=== PATIENT | female | born 1980 | race Caucasian/White ===

== ENCOUNTER → 2022-10-23 09:30 | Outpatient (CLI) | payer BC, SELFPAY ==
--- NOTE | ~2022-10-23 | MR_ITS ---
MRI of the brain Clinical History: Headache Technique: Axial and sagittal T1-weighted images were acquired. These were followed by axial T2-weigh tawanna, diffusion weighted, gradient, and FLAIR images. Following intravenous administration of 15 cc Mu ltiHance gadolinium, T1-weighted fat-sat imaging was performed in the axial and coronal planes. Findings: No abnormal signal seen in the brain parenchyma. No acute infarct, intracranial hemorrhage, or mass lesion. Ventricles and subarachnoid spaces are unremarkable. Orbits are unremarkable. Paranasal sinuses and m astoid air cells are clear. Major intracranial flow voids appear intact. Sagittal midline structures are intact. No abnormal postcontrast enhancement seen. IMPRESSION: Unremarkable exam. Reviewed, dictated and finalized at location M. IMPRESSION: Unremarkable exam.
== END ==
PROVIDERS: PCP Physician Assistant; Visit Provider Physician Assistant
DX: G44.52 New daily persistent headache (NDPH) (principal)
CPT/HCPCS: 70553; A9577

== ENCOUNTER 2024-07-23 08:36 | Outpatient (CLI) | payer BC, SELFPAY | END 2024-07-23 08:37 | disposition home or self-care (01) | PROVIDERS: PCP Internal Medicine; Visit Provider Internal Medicine | DX: K21.9 Gastro-esophageal reflux disease without esophagitis (principal); Z87.19 Personal history of other diseases of the digestive system | CPT/HCPCS: 74246 ==

== ENCOUNTER 2024-10-07 02:38 | Day surgery (SDC) | payer BC, SELFPAY ==
[2024-06-24 09:36] VITALS: BMI 27.6
--- OUTSIDE RECORDS SUMMARY | 2024-07-09 02:19 | XMS_ITS | Clinical Summary ---
Author Organization [facility] Address [address] [place] [address] Care Team Providers Care Test Case Developer Name Role Phone Daniel Sanchez MD Unavailable Prakash Velasquez MD Primary Care Provider Allergies No known active allergies Medications ascorbic acid (VITAMIN C) 1,000 mg tablet Take 1 tablet (1,000 mg total) by mouth daily Active acetaminophen-as pirin-caffeine (EXCEDRIN MIGRAINE) 250-250-65 mg per tablet Take 1 tablet by mouth every 4 (four) hours as needed Active esomeprazole DR (NexIUM) 20 mg capsule Take 1 capsule (20 mg total) by mouth daily before breakfast Active UNABLE TO FIND Med Name: Mary mccormick Active seyfdocf-ldpy-dg n-folic acid 18-0.4 mg tablet Take by mouth Active ashwagandha root extract 300 mg capsule Take by mouth Active Qulipta 60 mg tabletIndication s:Migraine Prevention Take 1 tablet by mouth daily 30 tablet 3 4 Active Additional Information Patient not taking.Reported on 04/08/2024 triamcinolone (KENALOG) 0.1 % ointment Apply topically 2 (two) times a day as needed for irritation or rash 60 g 5 4 Active Additional Information Patient not taking.Reported on 04/08/2024 methylPREDNISolo ne (Medrol, Connor,) 4 mg DosepackIndicati ons:Acute recurrent pansinusitis follow package directions 1 packet 4 Active Additional Information Patient not taking.Reported on 04/08/2024 busPIRone (BUSPAR) 10 mg tabletIndication s:Generalized Anxiety Disorder Take 1 tablet (10 mg total) by mouth daily 90 tablet 3 4 Active Active Problems Problem Noted Date Diagnosed Date GERD (gastroesophageal reflux disease) 4 Encounter for medical examination to establish c are 08/25/2023 Assessment & Plan (08/25/2023 1:29 PM CDT): A(n) initial well visit to establish care has been performed today. Nancy Alvarado is not up to date on screening tests. She is in need of hepatitis c screening and Cholesterol screening. She is not up to date on needed preventative vaccinations; She is in need of Tdap/Td and Covid-19 (booster). We discussed healthy lifestyle habits, educational material has been given. Medications reviewed, changes documented as per the medical record and discussed with patient along with risks vs benefits. Return in 1 year Decreased testosterone level 10/23/2022 Chronic headache disorder 10/17/2022 Migraines 10/17/2022 Fatigue 10/01/2022 Multiple joint pain 10/01/2022 New daily persistent headache 10/01/2022 Anxiety 10/26/2021 Bilateral impacted cerumen 10/26/2021 Gastroesophageal reflux disease 10/26/2021 Otalgia of both ears 10/26/2021 Encounters Date Type Department Care Team Description 04/08/2024 11:15 AM TAPE RULES PRINTING MACHINE OPERATOR Office Visit [facility] [address] [facility] [address] [place] [address] Adeola Persaud NP Well female exam with routine gynecological exam (Primary Dx); Anxiety from Last 3 Months Surgical History Surgery Date Site/Laterality Comments SHOULDER ARTHROSCOPY W/ LABRAL REPAIR 05/26/2013 - 05/25 CERVICAL DISC SURGERY 05/26/2014 - 05/25/2015 CERVICAL BIOPSY W/ LOOP ELEC TRODE EXCISION Medical History Medical History Date Comments Migraines GERD (gastroesophageal reflux disease) Family History Medical History Relation Name Comments KWABENA disease Brother 1 Asthma Brother 2 No Known Problems Father Dementia Maternal Grandmother Asthma Mother Cervical cancer Mother Brain tumors Mother's Brother Cancer Paternal Grandmother Heart failure Paternal Grandmother Menstrual problems Sister Relation Name Status Comments Brother 1 Alive Brother 2 Alive Father Alive Maternal Grandmother Mother Alive Mother's Brother Paternal Grandmother Sister Alive Social History Tobacco Use Types Packs/Day Years Used Date Smoking Tobacco: Never Passive Smoke Exposure: Never Smokeless Tobacco: Never Tobacco Cessation:Counseling Given: Not Answered Alcohol Use Standard Drinks/Week Comments Not Currently 0 (1 standard drink = 0.6 oz pur e alcohol) AUDIT-C Answer Date Recorded Q1: How often do you have a drink containing alc ohol? Never 04/08/2024 Q2: How many drinks containi ng alcohol do you have on a typical day when you are drinking? 1 or 2 04/08/2024 Q3: How often do you have si x or more drinks on one occasion? Less than monthly 04/08/2024 PHQ-2 Answer Date Recorded PHQ-2 Total Score (If total score is 3 or more points, staff should administer the PHQ-9) 0 08/25/2023 [place] Depression Scale Answer Date Recorded [place] Depression Scale Total 5 01/29/2020 The thought of harming myself has occurred to me . 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 Sex Female 5:22 PM TAPE RULES PRINTING MACHINE OPERATOR Gender Identity Not on file Sexual Orientation Not on file Obstetrics History Para Term AB IAB SAB Ectopic Multiple Livin g Live Births 3 3 3 0 1 1 Date Outcome GA Total Labor Labor/2nd/3rd Weight Sex Type Anes PTL Luh A1 A5 Name Clin 2007 Term M Vag-S pont Epidur al Delivery [facility] 2016 Term F Epidur al Delivery Location:[facility] 2019 Term 39w 1d 0h 19m 0h 13m/0h 06m 2.975 kg (6 lb 8.9 oz) M Vag-S pont Epidur al N Livin g [address],JENNIFER KALEB I Erwin tt, Rasheed Magdaleno MD Delivery [facility]) Last Filed Vital Signs Vital Sign Reading Time Taken Comments Blood Pressure 110/70 04/08/2024 11:41 AM TAPE RULES PRINTING MACHINE OPERATOR Pulse 81 11/23/2023 11:50 AM CDT Temperature 36.8 C (98.2 F) 11/23/2023 11:50 AM CDT Respiratory Rate 18 08/25/2023 12:59 PM CDT Oxygen Saturation 100% 11/23/2023 11:50 AM CDT Inhaled Oxygen Concentration - - Weight 78 kg (172 lb) 04/08/2024 11:41 AM TAPE RULES PRINTING MACHINE OPERATOR Height 165.1 cm (5' 5 ) 04/08/2024 11:41 AM TAPE RULES PRINTING MACHINE OPERATOR Body Mass Index 28.62 04/08/2024 11:41 AM TAPE RULES PRINTING MACHINE OPERATOR Plan of Treatment Health Maintenance Due Date Last Done Comments Hepatitis C Screening 1982 DTaP/Tdap/Td Vaccine (1 - Tdap) 1993 Varicella Vaccines (1 of 2 - 13+ 2-dose series) 1995 Hepatitis B Screening 02/29/2000 Cervical Cancer Screening 09/21/2021 09/21/2020 Covid-19 Vaccine (3 - 2023-2 5 season) 2024 08/02/2020, 07/05/2020 Influenza Vaccine (#1) 2024 Depression Screening 08/24/2024 08/25/2023, 01/29/2020 Breast Cancer Screening-Mammogram 03/17/2025 03/17/2024, 12/11/2022 Regular Well Visit/Exam 18-64 04/08/2025, 08/25/2023 HPV Vaccines Aged Out No longer eligi ble based on patient's age to complete this topic Pneumococcal vaccine <65 Aged Out No longer eligible based on patient's age to complete this topic Procedures Procedure Name Priority Date/Time Associated Diagnosis Comments IGP, APT HPV,RFX 16/18,45 Routine 04/08/2024 12:54 PM TAPE RULES PRINTING MACHINE OPERATOR Well female exam with routine gynecological exam SCREENING MAMMOGRAM BILATERAL W GAVINO Schedule Routine, Read Routine (OP Routine) 03/17/2024 9:05 AM CDT Screening mammogram, encounter for from Last 3 Months or Most Recently Relevant to Health Maintenance Results * IGP, Apt HPV,rfx 16/18,45 (04/08/2024 12:54 PM TAPE RULES PRINTING MACHINE OPERATOR) Clinical indication Comment [facility] - 01 Comment:NEGATIVE FOR INTRAEP ITHELIAL LESION OR MALIGNANCY. Specimen adequacy: Comment [facility] - 01 Comment: Satisfactory for evaluation. Endocervical and/or squamous metaplastic cells (endocervical component) are present. Clinician provided ICD10 Comment [facility] 02 Comment:Z01.419 Performed by Comment [facility] - 01 Comment:Makenna Hobbs, Cyt[employer] hnologist (ASCP) . . [facility] - 01 Note: Comment [facility] 02 Comment: The Pap smear is a screening test designed to aid in the detection of premalignant and malignant conditions of the uterine cervix. It is not a diagnostic procedure and should not be used as the sole means of detecting cervical cancer. Both false-positive and false-negative reports do occur. Test methodology Comment [facility] 02 Comment: This liquid based ThinPrep(R) pap test was screened with the use of an image guided system. HPV Aptima Negative Negative [facility] 03 Comment: This nucleic acid amplification test detects fourteen high-risk HPV types (16,18,31,33,35,39,45,51,52,56,58,59,66,68) without differentiation. Thin Prep-Cervical/ Endocervical 04/08/2024 12:54 PM TAPE RULES PRINTING MACHINE OPERATOR 04/08/2024 Narrative [facility] - 04/16/2024 2:36 PM TAPE RULES PRINTING MACHINE OPERATOR Performed at: - [facility] [id number] [place] [id number] Market Asset Protection Manager: Davonte Seay MD, Phone: [phone] Performed at: - Lab[address] [id number] Market Asset Protection Manager: Citlali Powell MD, Phone: [phone] Performed at: - [address] [id number] Market Asset Protection Manager: Citlali Powell MD, Phone: [phone] Specimen Comment: No. of containers..01 ThinPrep Vial Adeola Persaud NP LAB PATHOLOGY ORDERABLES Fi nal Result [facility] - 01 [facility] 02 [facility] 03 * Screening Mammogram Bilateral W Gavino (03/17/2024 9:05 AM CDT) Anatomical Region Laterality Modality Breast Bilateral Mammography Narrative 03/17/2024 12:15 PM CDT Examination: Screening Mammogram Bilateral W Gavino: 03/17/24 Clinical: Screening mammogram, encounter for. Prior Study Comparisons: Comparison was made to the prior available relevant studies at the time of interpretation. Findings: Screening Mammogram Bilateral W Gavino Bilateral No significant masses, malignant type calcifications, skin thickening, nipple retraction, or significant lymphadenopathy is noted in either breast. Computer Aided Detection was utilized for the interpretation of this study. There are scattered areas of fibroglandular density. The patient will be notified of results by letter. Impression: BI-RADS ATLAS category (overall): 1 - Negative Overall Assessment: 1 - Negative Recommendation: - Routine Screening Mammogram in 1 Yr for both breasts. us Self Screening Mammogram IMG MAMMO PROCEDURES Fi nal Result from Last 3 Months or Most Recently Relevant to Health Maintenance [place] For more information, please contact: [phone] * Full Code (Latest Code Status on File) Date Activated Date Inactivated Comments 01/28/2020 1:16 AM 01/29/2020 11:04 PM Full CPR in c ase of cardiopulmonary arrest Care Teams Test Case Developer Relationship Specialty Start Date End Date Prakash Velasquez MD [address] [facility] [address] [place] [address] PCP - General Family Medicine 08/25/23 Daniel aSnchez MD [address] [facility] [address] [place] [address] Consulting Physician Obstetrics and Gynecology 01/29/20
--- OUTSIDE RECORDS SUMMARY | 2024-07-09 02:19 | XMS_ITS | Referral Summary ---
Author Organization [facility] Address [address] [facility] [facility] [place] [address] Care Team Providers Care Cocoa Press Operator Name Role Phone J Carlos Dawkins MD Primary Care Provider [phone] Source Comments [facility],non-owned Affiliates and Associated Physician Practices is amultiple site organization consisting of ambulatory clinics and hospital sitesin [place], [place], [place] and [place]. This disclosure is being madepursuant to the Care Everywhere program and may not contain all information available regarding this patient. Last updated 18.[facility] [employer] Allergies No known active allergies Medications * Be aware that medications may not be up to date on this document. Alwaysverify current medications with the patient. Medication Sig Dispensed Refills Start Date End Date Status RaNITidine HCl (ZANTAC 75 PO) Active etonogestrel (NEXPLANON) 68 MG implant 68 mg by Subdermal route as directed Active Social History Tobacco Use Types Packs/Day Years Used Date Smoking Tobacco: Never Smokeless Tobacco: Never Sex and Gender Information Value Date Recorded Sex Assigned at Not on file Gender Identity Not on file Sexual Orientation Not on file Last Filed Vital Signs Vital Sign Reading Time Taken Comments Blood Pressure 118/66 08/04/2017 4:03 PM CDT Pulse 78 08/04/2017 4:03 PM CDT Temperature 37.2 C (98.9 F) 08/04/2017 4:03 PM CDT Respiratory Rate 16 08/04/2017 4:03 PM CDT Oxygen Saturation 97% 08/04/2017 4:03 PM CDT Inhaled Oxygen Concentration - - Weight 72.6 kg (160 lb) 08/04/2017 4:03 PM CDT Height 162.6 cm (5' 4 ) 08/04/2017 4:03 PM CDT Body Mass Index 27.46 08/04/2017 4:03 PM CDT Plan of Treatment Not on file Care Teams Cocoa Press Operator Relationship Specialty Start Date End Date J Carlos Dawkins MD PCP - General Family Medicine 02/19/17
--- OUTSIDE RECORDS SUMMARY | 2024-07-09 02:19 | XMS_ITS | Clinical Summary ---
Author Organization [facility] Address [address] [place] [address] Care Team Providers Care Trackless Trolley Driver Name Role Phone J Carlos Dawkins MD Primary Care Provider Source Comments [facility],non-owned Affiliates and Associated Physician Practices is amultiple site organization consisting of ambulatory clinics and hospital sitesin [place], [place], [place] and [place]. This disclosure is being madepursuant to the Care Everywhere program and may not contain all information available regarding this patient. Last updated 18.[facility] Allergies No known active allergies Medications * [...] 08/04/2017 4:03 PM CDT Plan of Treatment Health Maintenance Due Date Last Done Comments LIPID TESTING 1982 MAMMOGRAM 1982 PAP SMEAR 1982 HIV SCREENING 1997 HEPATITIS C SCREENING 02/24/2000 DTAP/TDAP/TD VACCINES (1 - Tdap) 2001 HEPATITIS B VACCINE (1 of 3 - 19+ 3-dose series) 2001 COVID-19 VACCINE (1 - 2023-2 5 season) 2024 INFLUENZA VACCINE (#1) 2024 DEPRESSION SCREENING 05/26/2024 ZOSTER VACCINE (1 of 2) 02/29/2032 HIB VACCINE Aged Out No longer eligi ble based on patient's age to complete this topic HPV VACCINE Aged Out No longer eligi ble based on patient's age to complete this topic MENINGOCOCCAL (Group B) VACCINE Aged Out No longer eligible based on patient's age to complete this topic MENINGOCOCCAL VACCINE Aged Out No kaya ciera eligible based on patient's age to complete this topic PNEUMOCOCCAL VACCINE Aged Out No long er eligible based on patient's age to complete this topic Care Teams Trackless Trolley Driver Relationship Specialty Start Date End Date J Carlos Dawkins MD PCP - General Family Medicine 02/19/17
--- OUTSIDE RECORDS SUMMARY | 2024-07-09 02:19 | XMS_ITS | Data Portability ---
Author Organization [facility], Main Office Address [address] [place] [address] Assessment No assessment recorded. Plan of Treatment Reminders Order Date Submit Date Provider Last Modified By Organization Details Last Modified Time Details Appointments None recorded. Lab lipid panel, serum 2022 [address] [place] [address] [facility], [address], [place], [address], 3 14:30:26 rf (rheumatoid factor), serum 2022 [address] [place] [address] [facility], [address], [place], [address], 3 14:30:25 HbA1c (hemoglobin A1c), blood 2022 [address] [place] [address] [facility], [address], [place], [address], 3 14:30:26 CBC w/ auto diff 2022 023 [email or web address] [facility], [address], [place], [address], 3 15:52:56 CMP, serum or plasma 2022 023 [email or web address] [facility], [address], [place], [address], 3 16:19:00 vitamin B12, serum 2022 023 [email or web address] [facility], [address], [place], [address], 3 15:53:11 iron + TIBC + ferritin, serum 2022 023 [email or web address] [facility], [address], [place], [address], 3 15:53:33 TSH + free T4, serum 2022 023 [email or web address] [facility], [address], [place], [address], 3 16:20:16 thyroid peroxidase (tpo) Ab, serum 2022 023 katie Fuller [facility], [address], [place], [address], 3 14:30:24 vitamin D, 25-hydroxy, total, serum 2022 023 katie Fuller [facility], [address], [place], [address], 3 14:30:25 thyroglobul in Ab, serum 2022 023 katie Fuller [facility], [address], [place], [address], 3 14:30:25 ANASTACIA (antinuclea r antibodies) screen, serum 2022 023 katie Fuller [facility], [address], [place], [address], 3 14:30:25 urinalysis complete, reflex culture 2022 023 katie Fuller [facility], [address], [place], [address], 3 14:30:26 testosteron e, free + total, serum 2022 023 [email or web address] [facility], [address], [place], [address], 3 14:30:26 Referral None recorded. Procedures None recorded. Surgeries None recorded. Imaging MRI, brain, w/wo contrast - Approved [id number] 10/01/2022- 11/29/20222022 023 [facility], [address], [place], [address], 15:57:37 Medication Orders None recorded. Patient TargetsNo targets recorded. Patient InstructionsNo instructions recorded. Reason for Referral None Reported. Results Created Date Observation Date Name Description Value Unit Range Abnormal Flag Note LastModifiedBy Organization Detail LastModifiedTime 10/24/1910/23/2022 MRI, brain , w/wo contr ast No observ ation record ed. [email or web address] [facility] [address], [place], [address], 02/11/2023 18:00:38 Result Notes None recorded. Problems Name Problem SNOMED Code Status Onset Date Resolution Date Notes Provider Name and Address Organization Details Recorded Time Impacted cerumen of bilateral ears 7951211466177 108 Active 2021 Not Available [facility] 3 20:55:02 Bilateral earache 529999455 Active 2021 Not Available [facility] 3 20:55:02 Gastroesop hageal reflux disease 484719776 Active 2021 Not Available [facility] 3 20:55:02 Anxiety 79143494 Active 2021 Not Available [facility] 3 20:55:02 Fatigue 88321543 Active 2022 RENEE Brown [facility] [address], [place], [address] , [facility] 3 12:27:56 New daily persistent headache 0514689506777 05 Active 2022 RENEE Brown [address], [place], [address] , [facility] 3 12:28:01 Multiple joint pain 97166505 Active 2022 RENEE Brown [address], [place], [address] , [facility] 3 12:29:15 Chronic headache disorder 307719831 Active 2022 RENEE Brown [address], [place], [address] , [facility] 3 11:44:16 Migraine 67916312 Active 2022 RENEE Brown [address], [place], [address] , [facility] 3 11:45:57 Testostero ne level below reference range 618469420 Active 2022 RENEE Brown [address], [place], [address] , [facility] 3 09:55:20 Problem Notes None recorded. Procedures Surgical History Date Name Laterality Status Provider Name and Address Organization Details Recorded Time Neck Surgeries completed Not Available [facility] 07/24/2022 20:54:25 Imaging Results Imaging Date Name Status LastModified by Organiz ation Details LastModified Time 10/23/2022 [facility], [facility], w[facility]wo [facility] [place] [address] Imaging [address], [place], [address], 02/11/2023 18:00:38 Procedure Notes None recorded. Medical Equipment None Reported. Allergies No known drug allergies Medications Name Sig Start Date Stop Date Status Note LastModified by Organization Details LastModified Time azithromycin 250 mg tablet TAKE 2 TABLETS (500 MG) BY ORAL ROUTE ONCE DAILY FOR 1 DAY THEN 1 TABLET (250 MG) BY ORAL ROUTE ONCE DAILY FOR 4 DAYS active Not Available Not Available No t Available prednisone 20 mg tablet TAKE 2 TABLETS BY MOUTH EVERY DAY FOR 5 DAYS 12/17 completed Not Available Not Available Not Available butalbital-a cetaminophen -caffeine 50 mg-325 mg-40 mg tablet 09/24 completed Not Available Not Available Not Available amoxicillin 875 mg tablet TK 1 T PO Q 12 H active Not Available Not Available No t Available amoxicillin 875 mg-potassium clavulanate 125 mg tablet TAKE 1 TABLET BY MOUTH EVERY 12 HOURS FOR 10 DAYS 10/26 completed Not Available Not Available Not Available escitalopram 10 mg tablet TAKE 1 TABLET BY MOUTH EVERY DAY 10/26 completed Not Available Not Available Not Available bupropion HCl XL 150 mg 24 hr tablet, extended release TK 1 T PO Q 24 H 10/26 completed Not Available Not Available Not Available Nexium daily 2018 active Not Available Not Available Not Avai lable drospirenone 3 mg-ethinyl estradiol 0.02 mg tablet TAKE 1 TABLET BY MOUTH EVERY DAY 10/26 completed Not Available Not Available Not Available Qulipta 60 mg tablet Take 1 tablet every day by oral route. 2022 active Not Available Not Available Not Avai lable Vitals Date Recorded Body mass index (BMI) Body mass index (BMI) Body height Body height Oxygen saturation Oxygen saturation in Arterial blood by Pulse oximetry Heart rate Respiratory rate Body temperature Body temperature Body weight Body weight Systolic blood pressure Diastolic blood pressure Provider Name and Address Organization Details Last Updated DateTime 3 29.9 kg/m2 30.3 kg/m2 162.56 cm 162.56 cm 98 % 98 % 95 /min 16 /min 98 [degF] 97.5 [degF] 46737.0 7 g 30516.6 9 g 108 mm[Hg] 70 mm[Hg] Not Available [facility] 3 20:54:52 Date Recorded Body height Body temperature Body mass index (BMI) Body weight Respiratory rate Oxygen saturation Oxygen saturation in Arterial blood by Pulse oximetry Heart rate Systolic blood pressure Diastolic blood pressure Provider Name and Address Organization Details Last Updated DateTime 3 162.56 cm 98 [degF] 28.2 kg/m2 05848.1 5 g 16 /min 98 % 98 % 74 /min 110 mm[Hg] 70 mm[Hg] TANYA Guthrie [place] - [facility] [place] [employer] [facility] 3 11:57:56 Date Recorded Body height Body mass index (BMI) Body weight Respiratory rate Oxygen saturation Oxygen saturation in Arterial blood by Pulse oximetry Heart rate Systolic blood pressure Diastolic blood pressure Provider Name and Address Organization Details Last Updated DateTime 3 162.56 cm 28.5 kg/m2 29409.3 3 g 16 /min 99 % 99 % 72 /min 120 mm[Hg] 72 mm[Hg] TANYA Guthrie - [employer] [place] [employer] [facility] 3 09:34:14 Social History Question Answer Notes LastModified by Organizat ion Details LastModified Time Tobacco Smoking Status Never Smoker Not Available [facility] 07/24/2022 20:54:20 Do You Have An Advance Directive? Yes [id number] Information not available 07/24/2022 What Is Your Level Of Alcohol Consumption? None Stopped Drinking 2022 Information not available 10/01/2022 What Is Your Level Of Caffeine Consumption? Moderate [id number].[id number] Information not available 07/24/2022 In The 14 Days Before Symptom Onset, Have You Had Close Contact With A Laboratory-confir med COVID-19 While That Case Was Ill? No [id number] Information not available 07/24/2022 In The 14 Days Before Symptom Onset, Have You Had Close Contact With A Person Who Is Under Investigation For COVID-19 While That Person Was Ill? No MIGRATION.77290 25459 Information not available 07/24/2022 Have There Been Any Changes To Your Family Or Social Situation? No Information no t available 09/30/2022 Are There Any Guns Present In Your Home? Yes [id number].44578 [id number] Information not available 07/24/2022 Do You Use Insect Repellent Routinely? No [email or web address] Information not available 09/30/2022 Have You Ever Been Counseled For Unhealthy Alcohol Use? No MIGRATION.58565 93935 Information not available 07/24/2022 What Is Your Relationship Status? MIGRATION.04783 94720 Information not available 07/24/2022 Do You Use Your Seat Belt Or Car Seat Routinely? Yes MIGRATION.09867 [id number] Information not available 07/24/2022 Do You Have Smoke And Carbon Monoxide Detectors In Your Home? Yes MIGRATION.72892 47156 Information not available 07/24/2022 Do You Feel Stressed (tense, Restless, Nervous, Or Anxious, Or Unable To Sleep At Night)? [id number] MIGRATION.48625 27912 Information not available 07/24/2022 Do You Use Any Illicit Or Recreational Drugs? No MIGRATION.87589 30642 Information not available 07/24/2022 Do You Use Sunscreen Routinely? Yes MIGRATION.49786 91856 Information not available 07/24/2022 Have You Recently Traveled Abroad? No MIGRATION.66923 26085 Information not available 07/24/2022 Do You Have Any Dietary Restrictions? No [email or web address] Information not available 09/30/2022 Do You Or Have You Ever Used Any Other Forms Of Tobacco Or Nicotine? No MIGRATION.87839 11777 Information not available 07/24/2022 Sex: Unknown Functional Status Question Answer Note LastModified by [employer] ion Details LastModified Time What is your exercise level? Moderate [id number] Information not available 07/24/2022 Mental Status None recorded. Family History Relationship Description Onset Age of this Age Resolved Age Notes LastModified by Organization Details LastModified Time Father No current problems or disability [id number] Not available 07/24/2022 20:54:27 Mother No current problems or disability [id number] Not available 07/24/2022 20:54:27 Brother Diabetes mellitus [email or web address] Not available 10/01 11:56:27 Medical History Condition Response MRSA N LUNG DISEASE/DISORDER N HISTORY OF DRUG ABUSE N COPD N RADIATION / CHEMOTHERAPY N BLOOD DISEASES N EAR OR HEARING PROBLEMS N SHINGLES N DEPRESSION (INCLUDING POST ) N STROKE/TIA N ULCERS N OBESITY N ANEURYSM N USE OF BLOOD THINNERS N PARATHYROID DISEASE N CHF N AIDS/HIV N FRACTURES N HYPERTENSION N TOURETTE'S N BLOOD TRANSFUSION N ANEMIA/BLOOD DISORDER N CHRONIC EAR INFECTIONS N TUBERCULOSIS N SLEEP APNEA N ALLERGIES/HAYFEVER N INSOMNIA N HIGH CHOLESTEROL / HYPERLIPIDEMIA N HYPERTHYROIDISM N HYPOTHYROIDISM N HAVE YOU BEEN HOSPITALIZED OR SEEN IN [facility] ER IN THE PAST YEAR ? N HISTORY WITH COMPLICATIONS WITH ANESTHES IA ? N NO SIGNIFICANT PAST MEDICAL HISTORY N DIABETES, TYPE N ENT N SEASONAL ALLERGIES N HEARTBURN / REFLUX N HEPATITIS / LIVER DISEASE N SLEEP DISORDER N HEADACHES/MIGRAINES N SEIZURES/EPILEPSY N PACEMAKER N DIZZINESS N HEART DISEASE/HEART PROBLEMS N CANCER: SPECIFY N ANESTHESIA COMPLICATIONS N AUTOIMMUNE DISEASE N Gynecological HistoryNo gynecological history recorded. Obstetrics History GPAL:G 2 P 0 0 0 2 Type Value Living 2 Total 2 Past Encounters Encounter ID Performer Location Encounter Start Date Encounter Closed Date Diagnosis/Indication Diagnosis SNOMED-CT Code Diagnosis ICD10 Code Diagnosis Note [id number] [facility] [place] [address] [place] [address] 10/26/2021 00:00:00 11/22/2021 20:13:08 [id number] [facility] ENT [place] [address] [place] [address] 02/07/2022 00:00:00 02/07/2022 12:02:27 [id number] RENEE Brown [facility] [place] [address] [place] [address] 10/01/2022 11:48:39 10/01/2022 12:37:03 Fatigue 16047144 R53.83 extensive fatigue panel requested for in depth evaluation of persistent fatigue despite diet healthy and exercise. New daily persistent headache 5734047450 88883 G44.52 qulipta 60mg daily samples Multiple joint pain 3567 8005 M25.50 refer for RF screening Cholesterol screening 27 8956778 Z13.220 fasting lipids due Diabetes m ellitus screening 932866587 Z13.1 screening for diabetes due [id number] RENEE Brown [facility] [place] [address] [place] [address] 10/23/2022 09:31:02 10/23/2022 10:42:47 Fatigue 04991792 R53.83 persistent . ? related to her low testostero ne. iron saturation is just below range but ferritin and iron are normal. she can start OTC iron to trial for now to see if fatigue improves. Testostero ne level below reference range 802066769 R89.1 testostero ne level of 9 on labs and free of 0.6. quite low and likely contributi ng to her chronic fatigue she experience s. Asked pt to reach out to her gynecologi st to inquire on starting testostero ne cream supplement ation. New daily persistent headache 8729775680 50524 G44.52 qulipta 60mg daily is working well. MRI is planned today of brain Health Concerns Section Related Observation LastModified by Organization Detai ls LastModified Time None Recorded Concern Status LastModified by Organization Details LastModified Time None Recorded Advance Directives Directive Y: Payers Encounter Date Sequence Insurance Name Policy Number Policy Dodd Covered Member ID Dodd Member ID Guarantor Name 10/01/2022 1 [facility]: [place] [id number] Imer Newton [id number] Nancy Newton 10/23/2022 1 [facility]: ([place] [id number] Imer Newton [id number] Nancy Newton Notes Date Note Type Note Provider Name and Address Organization Details Recorded Time 2 text/htm l Ear Pain Brief HPIReported bypatient.Location:[facility] Quality:no itching; no discharge from the ears; no burning Severity:no fever; able to perform daily activities; no interference with sleep Context:no recent URI; no recent trauma; no recent swimming; no immunocompromise; no dental problems; no recent airplane travel; no scuba diving; non-smoker;recent ear infection(currently thinks she has one) Alleviating factors:OTC ear drops: ; nasal steroid spray; irrigations of ear; advil sinus is being taken. Associated Symptoms:hearing loss(L ear);sense of fullness/pressure;decreased hearing;muffled hearingReflux/GERDReported bypatient.Symptomsheartburn Severity:moderate Context:related to any meal Alleviating Factors:medication Aggravating Factors:lying down Associated Symptoms:heartburn Not Available [facility] 11/22/2021 20:13:08 3 text/htm l FatigueReported bypatient.Quality:worse in the middle of day-11-4 Severity:normal sleep patterns; normal activity; improving;change in exercise habits(working out more lately) Duration:constant; symptoms lasting over 2 weeks Timing:better; actual date: (3 weeks) Context:symptoms improve on weekends/vacation;problems/ stress at work or home Modifying Factors:taking vitamins;new stressors in life Associated Symptoms:no drug/alcohol withdrawal; no depression; no sleep disturbances; no snoring; periods of not breathing (apnea) have not been observed; no recent change in weight;anxiety; extremely thirstyHeadacheReported bypatient.Location:band around head Quality:similar to previous headaches;aching;throbbing; pain Severity:moderate Duration:7-10 days/month Onset/Timing:worse Context:not related to trauma Aggravating factors:loud noise; visual stimuli or light Alleviating factors:nothing gives relief Associated Symptoms:no nausea; no vomiting; no fever; no constipation; no diarrhea; no confusion; no slurred speech; no dizziness; no weight loss; fatigue RENEE Brown [address] [address], [place], [address], [place] 10/23/2022 21:22:03 3 text/htm l FatigueReported bypatient.Quality:worse in the middle of -- Severity:normal sleep patterns; normal activity; improving;change in exercise habits(working out more lately) Duration:constant; symptoms lasting over 2 weeks Timing:better; actual date: (3 weeks) Context:symptoms improve on weekends/vacation;problems/ stress at work or home Modifying Factors:taking vitamins;new stressors in life Associated Symptoms:no drug/alcohol withdrawal; no depression; no sleep disturbances; no snoring; periods of not breathing (apnea) have not been observed; no recent change in weight;anxiety; extremely thirstyGeneric HPI TemplateReported bypatient.Notes:Pt is here to f/u on her labs. They are in her chart. MRI is scheduled at 10am today.HeadacheReported bypatient.Notes:qulipta is working well, only 2 headaches since last visit. still waiting on pharmacy to see if coverage is there. we have not received prior auth info. RENEE Brown [address] [facility] [address], [place], [address], [place] 10/23/2022 10:04:36 OBGyn Episode No OBEpisode recorded.
--- OUTSIDE RECORDS SUMMARY | 2024-07-09 02:19 | XMS_ITS | Encounter Summary ---
Author Organization [facility] Address [address] [place] [address] Care Team Providers Care Mathematical Engineering Technician Name Role Phone No, Physician Primary Care Provider [phone] Daniel Sanchez MD Unavailable Frieda Hunt Primary Care Pr ovider Prakash Velasquez MD Primary Care Provider Encounter Details Date Type Department Care Team (Late st Contact Info) Description 02/25/2020 Documentation [facility] [address] [place] [address] Suze Johnson, RN Social History Tobacco Use Types Packs/Day Years Used Date Smoking Tobacco: Never Smokeless Tobacco: Never Alcohol Use Standard Drinks/Week Comments Not Currently 0 (1 standard drink = 0.6 oz pur e alcohol) Norfolk Depression Scale Answer Date Recorded [place] Depression Scale Total 5 01/29/2020 The thought of harming myself has occurred to me . 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 Sex Female 5:22 PM ANALYSIS ENGINEER Gender Identity Not on file Sexual Orientation Not on file documented as of this encounter Miscellaneous Notes * Note - Suze Johnson, JORY - 02/25/2020 1:17 PM CDT Telephone Consult - 02/25/20 - 8241 - returned call to voice mail. documented in this encounter Plan of Treatment Not on file documented as of this encounter Visit Diagnoses Not on filedocumented in this encounter Additional Health Concerns Infection Onset Date Last Indicated Resolved Time COVID: Suspected 05/27/2023 05/27/2023 05/27/2023 4:04 PM ANALYSIS ENGINEER RSV, droplet 05/27/2023 05/27/2023 06/03/2023 3:05 AM ANALYSIS ENGINEER documented as of this encounter Care Teams Mathematical Engineering Technician Relationship Specialty Start Date End Date No, Physician PCP - General 10/28/16 12/10/22 Frieda Hunt PA [address] [facility] [address] [place] [address] PCP - General Physician Wind [employer] Electrical Systems Designer 12/11/22 08/24/23 Prakash Velasquez MD [address] [facility] [address] [place] [address] PCP - General Family Medicine 08/25/23 Daniel Sanchez MD [address] [facility] [address] [place] [address] Consulting Physician Obstetrics and Gynecology 01/29/20 documented as of this encounter
--- OUTSIDE RECORDS SUMMARY | 2024-07-09 02:19 | XMS_ITS | Referral Summary ---
Author Organization [facility] Address [address] [place] [address] Care Team Providers Care Skilled Trades Teacher Name Role Phone Daniel Sanchez MD Unavailable Prakash Velasquez MD Primary Care Provider Encounters Date Type Department Care Team Description 04/08/2024 11:15 AM OUTSOLE ROUNDER Office Visit [facility] [address] [facility] [address] [place] [address] Adeola Persaud NP Well female exam with routine gynecological exam (Primary Dx); Anxiety from Last 3 Months Allergies No known active allergies Medications ascorbic [...] breakfast Active UNABLE TO FIND Med Name: [facility] main Active dijxohws-dprx-tj n-folic acid 18-0.4 mg tablet Take by [...] Date Diagnosed Date GERD (gastroesophageal reflux disease) Encounter for medical examination to establish c [...] disease 10/26/2021 Otalgia of both ears 10/26/2021 Social History Tobacco Use Types Packs/Day Years [...] staff should administer the PHQ-9) 0 08/25/2023 Dav[place] Depression Scale Answer Date Recorded [place] Depression Scale Total 5 01/29/2020 The thought of harming myself has occurred to me . 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 Sex Female 5:22 PM OUTSOLE ROUNDER Gender Identity Not on file Sexual Orientation Not on file Last Filed Vital Signs Vital Sign Reading Time Taken Comments Blood Pressure 110/70 04/08/2024 11:41 AM OUTSOLE ROUNDER Pulse 81 11/23/2023 11:50 AM CDT Temperature 36.8 C (98.2 F) 11/23/2023 11:50 AM CDT Respiratory Rate 18 08/25/2023 12:59 PM CDT Oxygen Saturation 100% 11/23/2023 11:50 AM CDT Inhaled Oxygen Concentration - - Weight 78 kg (172 lb) 04/08/2024 11:41 AM OUTSOLE ROUNDER Height 165.1 cm (5' 5 ) 04/08/2024 11:41 AM OUTSOLE ROUNDER Body Mass Index 28.62 04/08/2024 11:41 AM OUTSOLE ROUNDER Plan of Treatment Not on file Procedures Procedure Name Priority Date/Time Associated Diagnosis Comments IGP, APT HPV,RFX 16/18,45 Routine 04/08/2024 12:54 PM OUTSOLE ROUNDER Well female exam with routine gynecological exam SCREENING MAMMOGRAM BILATERAL W GAVINO Schedule Routine, Read Routine (OP Routine) 03/17/2024 9:05 AM CDT Screening mammogram, encounter for from Last 3 Months or Most Recently Relevant to Health Maintenance Results * IGP, Apt HPV,rfx 16/18,45 (04/08/2024 12:54 PM OUTSOLE ROUNDER) Clinical indication Comment [facility] - 01 Comment:NEGATIVE [...] differentiation. Thin Prep-Cervical/ Endocervical 04/08/2024 12:54 PM OUTSOLE ROUNDER 04/08/2024 Narrative [facility] - 04/16/2024 2:36 PM OUTSOLE ROUNDER Performed at: - [facility] [address] [place] [id number] Sheeter Operator: Davonte Seay MD, Phone: [phone] Performed at: - [address] [id number] Sheeter Operator: Citlali Powell MD, Phone: [phone] Performed at: 03 - [address] [id number] Sheeter Operator: Citlali Powell MD, Phone: [phone] Specimen Comment: No. of containers..01 ThinPrep Vial Adeola Persaud NP LAB PATHOLOGY ORDERABLES Fi nal [facility] - 01 LAB [place] 02 LAB [...] Most Recently Relevant to Health Maintenance [place] Advance Directives For more information, please contact: [phone] * Full Code (Latest Code Status on File) Date Activated Date Inactivated Comments 01/28/2020 1:16 AM 01/29/2020 11:04 PM Full CPR in c ase of cardiopulmonary arrest Care Teams Skilled Trades Teacher Relationship Specialty Start Date End Date Prakash Velasquez MD [address] [place] [address] PCP - General Family Medicine 08/25/23 Daniel Sanchez MD [address] [place] [address] Consulting Physician Obstetrics and Gynecology 01/29/20
--- OUTSIDE RECORDS SUMMARY | 2024-07-09 02:19 | XMS_ITS | Patient Health Summary ---
Author Organization [facility] Address [address] [place] [address] Care Team Providers Care Marketing Planner Name Role Phone J Carlos Dawkins MD Primary Care Provider [phone] Note from [facility],non-owned Affiliates and Associated Physician Practices is amultiple site organization consisting of ambulatory clinics and hospital sitesin [place], [place] and [place]. This disclosure is being madepursuant to the Care Everywhere program and may not contain all information available regarding this patient. Last updated 18.[facility] Allergies No known active allergies Medications * Be aware that medications may not be up to date on this document. Alwaysverify current medications with the patient. * RaNITidine HCl (ZANTAC 75 PO) * etonogestrel (NEXPLANON) 68 MG implant 68 mg by Subdermal route as directed Social History Tobacco Use Types Packs/Day Years [...] Mass Index 27.46 08/04/2017 4:03 PM CDT Procedures * STREP A SCREEN - POINT OF CARE (AMB) STL(Performed 08/04/2017) Performed for Nasopharyngitis acute * STREP A SCREEN - POINT OF CARE (AMB) STL(Performed 07/22/2017) Performed for Acute pansinusitis, recurrence not specified * STREP A SCREEN - POINT OF CARE (AMB) STL(Performed 05/12/2017) Performed for Acute pansinusitis, recurrence not specified, Upper airway cough syndrome Results * STREP A SCREEN - POINT OF CARE (AMB) STL (08/04/2017) Only the most recent of3 resultswithin the time period is included. Strep A Rapid POCT Negative Negative Strep A Internal Control Present Lot # [id number] Expiration Date 02/13/19 Throat ENTIRE THROAT (SURFACE REGION OF NECK) / Unknown 08/04/2017 Rachael Sanchez CLAY [employer]SP[employer] - POINT OF CA RE ORDERABLES Care Teams Marketing Planner Relationship Specialty Start Date End Date J Carlos Dawkins MD PCP - General Family Medicine 02/19/17
--- NOTE | 2024-07-09 08:27 | SUR.PREOP ---
Patient called needing to cancel procedure for today 07/09/2024 at 1430 due to having COVID. Currently has a fever and coughing. Informed the patient that she will be taken off the list for today and to call the office when she is well and ready to reschedule.
[2024-09-29 14:38] VITALS: BMI 26.6
--- OUTSIDE RECORDS SUMMARY | 2024-10-07 02:40 | XMS_ITS | Referral Summary ---
Author Organization [facility] Address [address] [place] [address] Care Team Providers Care Picture Enlarger Name Role Phone Daniel Sanchez MD Unavailable Prakash Velasquez MD Primary Care Provider Encounters Date Type Department Care Team Description 07/26/2024 Telephone [facility] Primary Care at [address] [address] Prakash Velasquez MD PA for Qulipta 60MG tablets from Last 3 Months Allergies No known [...] breakfast Active UNABLE TO FIND Med Name: Limiguel main Active hvtxhqzd-syjb-ny n-folic acid 18-0.4 mg tablet Take by [...] staff should administer the PHQ-9) 0 08/25/2023 [place] Depression Scale Answer Date Recorded [place] Depression Scale Total 5 01/29/2020 The thought of harming myself has occurred to me . 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 [employer] Gender Identity Not on file Sexual Orientation Not on file Last Filed Vital Signs Vital Sign Reading Time Taken Comments Blood Pressure 110/70 04/08/2024 11:41 AM [employer]STER IN [employer] Pulse 81 11/23/2023 11:50 AM CDT Temperature 36.8 C (98.2 F) 11/23/2023 11:50 AM CDT Respiratory Rate 18 08/25/2023 12:59 PM CDT Oxygen Saturation 100% 11/23/2023 11:50 AM CDT Inhaled Oxygen Concentration - - Weight 78 kg (172 lb) 04/08/2024 11:41 AM MASTER [employer] Height 165.1 cm (5' 5 ) 04/08/2024 11:41 AM MASTER IN [employer] Body Mass Index 28.62 04/08/2024 11:41 AM MASTER IN [employer]ANC[employer] Plan of Treatment Not on file Procedures Procedure Name Priority Date/Time Associated Diagnosis Comments SCREENING MAMMOGRAM BILATERAL W CRISSY Schedule Routine, Read Routine (OP Routine) 03/17/2024 9:05 AM CDT Screening mammogram, encounter for from Last 3 Months or Most Recently Relevant to Health Maintenance Results * Screening Mammogram Bilateral W Crissy (03/17/2024 9:05 AM CDT) Anatomical Region Laterality Modality Breast Bilateral Mammography Narrative 03/17/2024 12:15 PM CDT Examination: Screening Mammogram Bilateral W Crissy: 03/17/24 Clinical: Screening mammogram, encounter for. Prior Study Comparisons: Comparison was made to the prior available relevant studies at the time of interpretation. Findings: Screening Mammogram Bilateral W Crissy Bilateral No significant masses, malignant type calcifications, [...] Most Recently Relevant to Health Maintenance Insurance [employer] [place] [employer] [place] [employer] [place] [employer] [place] Advance Directives For more information, please contact: [phone] * Full Code (Latest Code Status on File) Date Activated Date Inactivated Comments 01/28/2020 1:16 AM 01/29/2020 11:04 PM Full CPR in c ase of cardiopulmonary arrest Care Teams Picture Enlarger Relationship Specialty Start Date End Date Prakash Velasquez MD [address] [facility] [address] [place] [address] PCP - General Family Medicine 08/25/23 Daniel Sanchez MD [address] [facility] [address] [place] [address] Consulting Physician Obstetrics and Gynecology 01/29/20
--- OUTSIDE RECORDS SUMMARY | 2024-10-07 02:40 | XMS_ITS | Clinical Summary ---
Author Organization [facility] Address [address] [facility] [place] [address] Care Team Providers Care Cutter Gas Name Role Phone J Carlos Dawkins MD Primary Care Provider [phone] Source Comments [facility],non-owned Affiliates and Associated Physician Practices is amultiple site organization consisting of ambulatory clinics and hospital sitesin [place], [place], [place] and [place]. This disclosure is being madepursuant to the Care Everywhere program and may not contain all information available regarding this patient. Last updated 18.[facility] Allergies No known active allergies Medications * Be aware that medications may not be up to date on this document. Alwaysverify current medications with the patient. RaNITidine HCl (ZANTAC 75 PO) Activ e etonogestrel (NEXPLANON) 68 MG implant 68 mg by Subdermal route as directed Active Social History Tobacco Use Types Packs/Day Years Used Date Smoking Tobacco: Never Smokeless Tobacco: Never Comments No Sex and Gender Information Value Date Recorded Sex Assigned at Not on file Legal Sex Female 10:00 AM CDT Gender Identity Not on file Sexual Orientation [...] Done Comments LIPID TESTING 1982 MAMMOGRAM 1982 HIV SCREENING 1997 HEPATITIS C SCREENING 02/24/2000 DTAP/TDAP/TD VACCINES (1 - Tdap) 2001 HEPATITIS B VACCINE (1 of 3 - 19+ 3-dose series) 2001 COVID-19 VACCINE (1 - 2023-2 5 season) 2024 DEPRESSION SCREENING 05/26/2024 INFLUENZA VACCINE (Season Ended) 2025 ZOSTER VACCINE (1 of 2) 02/29/2032 HIB VACCINE Aged Out No longer eligi ble based on patient's age to complete this topic HPV VACCINE Aged Out No longer eligi ble based on patient's age to complete this topic MENINGOCOCCAL (Group B) VACC INE SHARED DECISION-MAKING Aged Out No longer eligibl e based on patient's age to complete this topic MENINGOCOCCAL GROUPS A/C/Y/W VACCINE Aged Out No longer eligible b ased on patient's age to complete this topic PNEUMOCOCCAL VACCINE Aged Out No long er eligible based on patient's age to complete this topic Insurance [employer] Care Teams Cutter Gas Relationship Specialty Start Date End Date J Carlos Dawkins MD PCP - General Family Medicine 02/19/17
--- OUTSIDE RECORDS SUMMARY | 2024-10-07 02:40 | XMS_ITS | Clinical Summary ---
Author Organization [facility] Address [address] [place] [address] Care Team Providers Care Tube Molder Fiberglass Name Role Phone Daniel Sacnhez MD Unavailable Prakash Velasquez MD Primary Care [...] TO FIND Med Name: Mary mccormick Active ufgxqqvm-pywz-vb n-folic acid 18-0.4 mg tablet Take by [...] Type Department Care Team Description 07/26/2024 Telephone [facility] Primary Care at [address] [address] Prakash Velasquez MD PA for Qulipta 60MG tablets from Last 3 Months Surgical History Surgery [...] staff should administer the PHQ-9) 0 08/25/2023 [place] Depression Scale Answer Date Recorded [place] Depression Scale Total 5 01/29/2020 The thought of harming myself has occurred to me . 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 Sex Female 5:22 PM PRODUCTION AIDE Gender Identity Not on file Sexual Orientation [...] N Livin g [address],JENNIFER Hood tt, Rasheed Magdaleno MD Delivery Location:This [facility] ([facility]) Last Filed Vital Signs Vital Sign Reading Time Taken Comments Blood Pressure 110/70 04/08/2024 11:41 AM PRODUCTION AIDE Pulse 81 11/23/2023 11:50 AM CDT Temperature 36.8 C (98.2 F) 11/23/2023 11:50 AM CDT Respiratory Rate 18 08/25/2023 12:59 PM CDT Oxygen Saturation 100% 11/23/2023 11:50 AM CDT Inhaled Oxygen Concentration - - Weight 78 kg (172 lb) 04/08/2024 11:41 AM PRODUCTION AIDE Height 165.1 cm (5' 5 ) 04/08/2024 11:41 AM PRODUCTION AIDE Body Mass Index 28.62 04/08/2024 11:41 AM PRODUCTION AIDE Plan of Treatment Health Maintenance Due Date [...] Associated Diagnosis Comments SCREENING MAMMOGRAM BILATERAL W GAVINO Schedule Routine, Read Routine (OP Routine) 03/17/2024 9:05 AM CDT Screening mammogram, encounter for from Last 3 Months or Most Recently Relevant to Health Maintenance Results * Screening Mammogram Bilateral W Gavino (03/17/2024 [...] Most Recently Relevant to Health Maintenance Insurance [employer] [facility] [employer] [facility] [email or web address] [place] [email or web address] [place] Advance Directives For more information, please contact: [phone] * Full Code (Latest Code Status on File) Date Activated Date Inactivated Comments 01/28/2020 1:16 AM 01/29/2020 11:04 PM Full CPR in c ase of cardiopulmonary arrest Care Teams Tube Molder Fiberglass Relationship Specialty Start Date End Date Prakash Velasquez MD [address] [place] [address] PCP - General Family Medicine 08/25/23 Daniel Sanchez MD [address] [place] [address] Consulting Physician Obstetrics and Gynecology 01/29/20
--- OUTSIDE RECORDS SUMMARY | 2024-10-07 02:40 | XMS_ITS | Encounter Summary ---
Author Organization [facility] Address [address] [place] [address] Care Team Providers Care Patient Services Assistant Name Role Phone No, Physician Primary Care Provider Daniel Sanchez MD Unavailable Frieda Hunt Primary Care Pr ovider Prakash Velasquez MD Primary Care Provider Encounter Details Date Type Department Care Team (Late st Contact Info) Description 02/25/2020 Documentation [facility] [address] [place] [address] Suze Johnson, RN Social History Tobacco Use Types Packs/Day Years Used Date Smoking Tobacco: Never Smokeless Tobacco: Never Alcohol Use Standard Drinks/Week Comments Not Currently 0 (1 standard drink = 0.6 oz pur e alcohol) [place] Depression Scale Answer Date Recorded [place] Depression Scale Total 5 01/29/2020 The thought of harming myself has occurred to me . 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 documented in this encounter Plan of Treatment Not on file documented as of this encounter Visit Diagnoses Not on filedocumented in this encounter Additional Health Concerns Infection Onset Date Last Indicated Resolved Time COVID: Suspected 05/27/2023 05/27/2023 05/27/2023 4:04 PM [employer] RSV, droplet 05/27/2023 05/27/2023 06/03/2023 3:05 AM [employer] documented as of this encounter Care Teams Patient Services Assistant Relationship Specialty Start Date End Date No, Physician PCP - General 10/28/16 12/10/22 Frieda Hunt PA [address] [facility] [address] [place] [address] PCP - General Physician Mines Inspector 12/11/22 08/24/23 Prakash Velasquez MD [address] [facility] [address] [place] [address] PCP - General Family Medicine 08/25/23 Daniel Sanchez MD [address] [facility] [address] [place] [address] Consulting Physician Obstetrics and Gynecology 01/29/20 documented as of this encounter
--- OUTSIDE RECORDS SUMMARY | 2024-10-07 02:40 | XMS_ITS | Data Portability ---
Author Organization [facility] [employer], Main Office Address [address] [place] [address] Assessment No assessment recorded. Plan of Treatment Reminders Order Date Submit Date Provider Last Modified By Organization Details Last Modified Time Details Appointments None recorded. Lab lipid panel, serum 2022 023 [place] [address] [facility], [address], [place], [address], 3 14:30:26 rf (rheumatoid factor), serum 2022 023 [place] [address] [facility], [address], [place], [address], 3 14:30:25 HbA1c (hemoglobin A1c), blood 2022 023 [place] [address] [facility], [address], [place], [address], 3 14:30:26 CBC w/ auto diff 2022 023 [email or web address] [facility], [address], [place], [address], 3 15:52:56 CMP, serum or plasma 2022 023 [email or web address] [facility], [address], [place], [address], 3 16:19:00 vitamin B12, serum 2022 023 [email or web address] [facility], [address], [place], [address], 3 15:53:11 iron + TIBC + ferritin, serum 2022 023 [email or web address] [facility], [address], [place], [address], 3 15:53:33 TSH + free T4, serum 2022 023 [email or web address] [facility], [address], [place], [address], 3 16:20:16 thyroid peroxidase (tpo) Ab, serum 2022 023 katie Fuller [facility], [address], [place], [address], 3 14:30:24 vitamin D, 25-hydroxy, total, serum 2022 023 katie Fuller [facility], [address], [place], [address], 3 14:30:25 thyroglobul in Ab, serum 2022 023 katie Fuller [facility], [address], [place], [address], 3 14:30:25 ANASTACIA (antinuclea r antibodies) screen, serum 2022 023 katie Fuller [facility], [address], [place], [address], 3 14:30:25 urinalysis complete, reflex culture 2022 023 katie Fuller [facility], [address], [place], [address], 3 14:30:26 testosteron e, free + total, serum 2022 023 [email or web address] [facility], [address], [place], [address], 3 14:30:26 Referral None recorded. Procedures None recorded. Surgeries None recorded. Imaging MRI, brain, w/wo contrast - Approved [id number] 10/01/2022- 11/29/20222022 023 [facility], [address], [place], [address], 15:57:37 Medication Orders None recorded. Patient TargetsNo targets recorded. Patient InstructionsNo instructions recorded. Reason for Referral None Reported. Results Created Date Observation Date Name Description Value Unit Range Abnormal Flag Note LastModifiedBy Organization Detail LastModifiedTime 10/24/1910/23/2022 MRI, brain , w/wo contr ast No observ ation record ed. [email or web address] [facility] [address], [place], [address], 02/11/2023 18:00:38 Result Notes None recorded. Problems Name Problem SNOMED Code Status Onset Date Resolution Date Notes Provider Name and Address Organization Details Recorded Time Impacted cerumen of bilateral ears 8530539758212 108 Active 2021 Not Available [facility] 3 20:55:02 Bilateral earache 110988999 Active 2021 Not Available [facility] 3 20:55:02 Gastroesop hageal reflux disease 389288465 Active 2021 Not Available [facility] 3 20:55:02 Anxiety 70662376 Active 2021 Not Available [facility] 3 20:55:02 Fatigue 14269451 Active 2022 RENEE Brown [facility][note 3] [address], [place], [address] , [place] [employer] 3 12:27:56 New daily persistent headache 5622314731041 05 Active 2022 RENEE Brown [address], [address], [place], [address] , [employer] 3 12:28:01 Pain of multiple joints 72354407 Active 2022 RENEE Brown [address], [address], [place], [address] , [employer] 3 12:29:15 Chronic headache disorder 394812222 Active 2022 RENEE Brown [address], [address], [place], [address] , [employer] 3 11:44:16 Migraine 25364192 Active 2022 RENEE Brown [address], [address], [place], [address] , [employer] 3 11:45:57 Testostero ne level below reference range 384259363 Active 2022 RENEE Brown [address], [address], [place], [address] , [employer] 3 09:55:20 Problem Notes None recorded. Procedures Surgical History Date Name Laterality Status Provider Name and Address Organization Details Recorded Time Neck Surgeries completed Not Available [employer] [facility] 07/24/2022 20:54:25 Imaging Results Imaging Date Name Status LastModified by Organiz ation Details LastModified Time 10/23/2022 [facility], [facility] [place] [address] Imaging [address], [place], [address], 02/11/2023 18:00:38 Procedure Notes None recorded. Medical [...] Date Recorded Body mass index (BMI) Body height Oxygen saturation Oxygen saturation in Arterial blood by Pulse oximetry Heart rate Respiratory rate Body temperature Body weight Systolic blood pressure Diastolic blood pressure Provider Name and Address Organization Details Last Updated DateTime 2 29.9 kg/m2 162.56 cm 98 % 98 % 95 /min 16 /min 98 [degF] 74571.0 7 g 108 mm[Hg] 70 mm[Hg] Not Available [facility] 3 20:54:52 Date Recorded Body mass index (BMI) Body height Body temperature Body weight Provider Name and Address Organization Details Last Updated DateTime 02/07/2022 30.3 kg/m2 162.56 cm 97.5 [degF] 21556.69 g Not Available [facility] 07/24/2022 20:54:53 Date Recorded Body height Body temperature Body mass index (BMI) Body weight Respiratory rate Oxygen saturation Oxygen saturation in Arterial blood by Pulse oximetry Heart rate Systolic blood pressure Diastolic blood pressure Provider Name and Address Organization Details Last Updated DateTime 3 162.56 cm 98 [degF] 28.2 kg/m2 29620.1 5 g 16 /min 98 % 98 % 74 /min 110 mm[Hg] 70 mm[Hg] TANYA Guthrie [facility] [employer] [facility] 3 11:57:56 Date Recorded Body height Body mass index (BMI) Body weight Respiratory rate Oxygen saturation Oxygen saturation in Arterial blood by Pulse oximetry Heart rate Systolic blood pressure Diastolic blood pressure Provider Name and Address Organization Details Last Updated DateTime 3 162.56 cm 28.5 kg/m2 85528.3 3 g 16 /min 99 % 99 % 72 /min 120 mm[Hg] 72 mm[Hg] TANYA Guthrie [facility] 3 09:34:14 Social History Question Answer Notes LastModified by Organizat ion Details LastModified Time Tobacco Smoking Status Never Smoker Not Available [facility] 07/24/2022 20:54:20 Do You Have An Advance Directive? Yes [id number] Information not available 07/24/2022 What Is Your Level Of Caffeine Consumption? Moderate [id number] Information not available 07/24/2022 In The 14 Days Before Symptom Onset, Have You Had Close Contact With A Laboratory-confirm ed COVID-19 While That Case Was Ill? No [id number] Information not available 07/24/2022 In The 14 Days Before Symptom Onset, Have You Had Close Contact With A Person Who Is Under Investigation For COVID-19 While That Person Was Ill? No [id number].[id number] Information not available 07/24/2022 Have There Been Any Changes To Your Family Or Social Situation? No [email or web address] Information no t available 09/30/2022 Are There Any Guns Present In Your Home? Yes [id number].[id number] 2873 Information not available 07/24/2022 Do You Use Insect Repellent Routinely? No [email or web address] Information not available 09/30/2022 Have You Ever Been Counseled For Unhealthy Alcohol Use? No [id number] Information not available 07/24/2022 What Is Your Relationship Status? [id number].[id number] 5032 Information not available 07/24/2022 Do You Use Your Seat Belt Or Car Seat Routinely? Yes [id number].[id number] 6209 Information not available 07/24/2022 Do You Have Smoke And Carbon Monoxide Detectors In Your Home? Yes [id number].270348 3322 Information not available 07/24/2022 Do You Use Sunscreen Routinely? Yes MIGRATION.054269 7661 Information not available 07/24/2022 Have You Recently Traveled Abroad? No MIGRATION.471128 6205 Information not available 07/24/2022 Do You Have Any Dietary Restrictions? No [email or web address] Information not available 09/30/2022 Sex: Unknown Functional Status Question Answer Note LastModified by [employer] Details LastModified Time Do you use any illicit or recreational drugs? No MIGRATION.[id number] 1395 Information not available 07/24/2022 Do you or have you ever used any other forms of tobacco or nicotine? No MIGRATION.[id number] 4506 Information not available 07/24/2022 What is your level of alcohol consumption? None stopped drinking 2022 Information not available 10/01/2022 What is your exercise level? Moderate [id number].059393 0677 Information not available 07/24/2022 Mental Status Question Answer Note LastModified by [employer] Details LastModified Time Do you feel stressed (tense, restless, nervous, or anxious, or unable to sleep at night)? [id number] Information not available 07/24/2022 Family History Relationship Description Onset Age of this Age Resolved Age Notes LastModified by Organization Details LastModified Time Father No current problems or disability [id number] Not available 07/24/2022 20:54:27 Mother No current problems or disability [id number] Not available 07/24/2022 20:54:27 Brother Diabetes mellitus [email or web address] Not available 10/01 11:56:27 Medical History Condition Response MRSA N SLEEP APNEA N ALLERGIES/HAYFEVER N LUNG DISEASE/DISORDER N HISTORY OF DRUG ABUSE N INSOMNIA N COPD N RADIATION / CHEMOTHERAPY N HIGH CHOLESTEROL / HYPERLIPIDEMIA N HYPERTHYROIDISM N BLOOD DISEASES N EAR OR HEARING PROBLEMS N HYPOTHYROIDISM N SHINGLES N DEPRESSION (INCLUDING POST ) N HAVE YOU BEEN HOSPITALIZED OR [facility] IN THE PAST YEAR ? N STROKE/TIA N ULCERS N OBESITY N ANEURYSM N HISTORY WITH COMPLICATIONS WITH ANESTHES IA ? N USE OF BLOOD THINNERS N NO SIGNIFICANT PAST MEDICAL HISTORY N DIABETES, TYPE N PARATHYROID DISEASE N ENT N SEASONAL ALLERGIES N HEARTBURN / REFLUX N HEPATITIS / LIVER DISEASE N SLEEP DISORDER N SEIZURES/EPILEPSY N HEADACHES/MIGRAINES N CHF N PACEMAKER N DIZZINESS N HEART DISEASE/HEART PROBLEMS N AIDS/HIV N FRACTURES N HYPERTENSION N CANCER: SPECIFY N TOURETTE'S N BLOOD TRANSFUSION N ANEMIA/BLOOD DISORDER N ANESTHESIA COMPLICATIONS N CHRONIC EAR INFECTIONS N AUTOIMMUNE DISEASE N TUBERCULOSIS N Gynecological HistoryNo gynecological history recorded. Obstetrics History GPAL:G 2 P 0 0 0 2 Type Value Living 2 Total 2 Past Encounters Encounter ID Performer Location Encounter Start Date Encounter Closed Date Diagnosis/Indication Diagnosis SNOMED-CT Code Diagnosis ICD10 Code Diagnosis Note [id number] Mukund Pantoja MD [facility] Internal Med [place] [address] [place] [address] 10/26/2021 00:00:00 11/22/2021 20:13:08 [id number] Shane Rene MD [facility] E[place] [address] [place] [address] 02/07/2022 00:00:00 02/07/2022 12:02:27 [id number] RENEE Brown [facility] Internal [facility] [place] [address] [place] [address] 10/01/2022 11:48:39 10/01/2022 12:37:03 Fatigue 61625843 R53.83 extensive fatigue panel requested for in depth evaluation of persistent fatigue despite diet healthy and exercise. New daily persistent headache 7264317664 40749 G44.52 qulipta 60mg daily samples Pain of mu ltiple joints 42938463 M25.50 refer for RF screening Cholesterol screening 27 3323352 Z13.220 fasting lipids due Diabetes m ellitus screening 302134582 Z13.1 screening for diabetes due [id number] RENEE Brown [facility] Internal Med [place] [address] [place] [address] 10/23/2022 09:31:02 10/23/2022 10:42:47 Fatigue 50234706 R53.83 persistent . ? related to her low testostero ne. iron saturation is just below range but ferritin and iron are normal. she can start OTC iron to trial for now to see if fatigue improves. Testostero ne level below reference range 741045909 R89.1 testostero ne level of 9 on labs and free of 0.6. quite low and likely contributi ng to her chronic fatigue she experience s. Asked pt to reach out to her gynecologi st to inquire on starting testostero ne cream supplement ation. New daily persistent headache 4605710342 09806 G44.52 qulipta 60mg daily is working well. MRI is planned today of brain Health Concerns Section Related Observation LastModified by Organization Detai ls LastModified Time None Recorded Concern Status LastModified by Organization Details LastModified Time None Recorded Advance Directives Directive Y: Payers Encounter Date Sequence Insurance Name Policy Number Policy Dodd Covered Member ID Dodd Member ID Guarantor Name 10/01/2022 1 [place] [id number] Imer Newton [id number] Nancy Newton 10/23/2022 1 [place] [id number] Imer Newton [id number] Nancy Newton Notes Date Note Type Note Provider Name and Address Organization Details Recorded Time 2 text/htm l Ear Pain Brief HPIReported bypatient.Location:[facility] Quality:no itching; no discharge from the ears; [...] Aggravating Factors:lying down Associated Symptoms:heartburn Not Available [place] [facility] [employer] 11/22/2021 20:13:08 3 text/htm l FatigueReported bypatient.Quality:worse in the middle of Severity:normal sleep patterns; normal activity; improving;change in [...] no weight loss; fatigue RENEE Brown [address] [facility], [address], [address], [place] [facility] [place] [employer] [facility] 10/23/2022 21:22:03 3 text/htm l FatigueReported bypatient.Quality:worse in the middle of Severity:normal sleep patterns; normal activity; improving;change in [...] received prior auth info. RENEE Brown [address] [facility], [facility] [address], [place], [address], [facility] [place] [employer] [facility] 10/23/2022 10:04:36 OBGyn Episode No OBEpisode recorded.
[2024-10-07 06:38] VITALS: BP 102/71; PULSE 76; RESP 14; TEMP 36; O2SAT 100; BMI 26.5
[2024-10-07] MEDS: LACTATED RINGERS 1,000 ML 150 ML IV CONT (06:58)
--- NOTE | 2024-10-07 07:01 | WPDANESEPPF ---
Anes - Initial Pre Proc Eval Procedure: Operation Date: 10/07/24 08:00 Proposed Procedures p Esophagogastroduodenoscopy - Андрей Joyce MD Date/Time: 10/07/24 07:01 Surgeon: Андрей Joyce MD Pre Op Diagnosis: GERD, hx of other disease of dig system Patient Data Age: 44 Gender: F Height: 1.65 m Weight: 72.3 kg Last Vital Signs Temp 36.0 C L 10/07/24 06:38 Pulse 76 10/07/24 06:38 Resp 14 10/07/24 06:38 BP 102/71 10/07/24 06:38 Pulse Ox 100 10/07/24 06:38 O2 Del Method Room Air 10/07/24 06:38 Allergies Allergy/AdvReac Type Severity Reaction Status Date / Time No Known Allergies Allergy Verified 10/07/24 06:42 Home Medications Medication Instructions Recorded Confirmed Type Limiguel Donald See Rx Instructions BYMOUTH DAILY 06/07/24 10/07/24 History buspirone 10 mg tablet 10 mg PO DAILY 06/07/24 10/07/24 History famotidine 40 mg tablet (Pepcid) 40 mg PO BID #180 tabs 06/07/24 10/07/24 Rx cholecalciferol (vitamin D3) 50 50 mcg PO DAILY 06/24/24 10/07/24 History mcg (2,000 unit) capsule Patient hx anesthesia problems: none Family hx anesthesia problems: none Results Review: All pre-operative results and documents have been reviewed as part of the pre-operative evaluation. [facility] Past Medical History Medical History Vitamin D deficiency Follow up Migraines History of Helicobacter pylori infection Allergies Dermatographism BMI 27.0-27.9,adult Insomnia On rn long term care drug therapy GERD (gastroesophageal reflux disease) Anxiety Encounter to establish care Surgical History Surgical History (Updated 10/07/24 @ 07:05 by Lewis Richmond MD) H/O cervical spine surgery Family History Family History Mother Asthma Ovarian cancer Depression Anxiety Sibling Asthma ETOHism Anxiety Depression Thyroid disorder PCOS (polycystic ovarian syndrome) Sleep apnea Grandparent Heart disease Sibling Diabetes mellitus Type II Hypertension GERD (gastroesophageal reflux disease) Social History Social History Smoking status: Never smoker Second hand tobacco smoke exposure: No Alcohol intake: never Substance use: never Substance use type: does not use Do You Feel Safe in your Home?: Yes Lack of Transportation: No Lack of Food: Never True Current Housing: I Have Housing Concerned About Future Housing: No Difficulty Paying Gas/Electric Bills: No Difficulty Paying for Meds: No Currently Unemployed: No Education: Master's Degree or Higher Difficulty w/ Childcare or Family Care: No Living arrangements: with family Occupation/Education: occupation Gender identity (if verbalized by the patient): Female Spiritual care concerns: No Anes - Eval Final PreProcedure Day of Procedure 10/07/24 07:01 Patient weight: overweight Heart: regular rate and rhythm Lungs: clear to auscultation Airway: Mallampati scale class 1 Neurological: alert and oriented Last oral intake: >/= 8 hours ASA classification: II Emergent: no Anesthetic plan: proceed Anesthesia type and monitoring: general GIVS and standard monitoring Results Review: All pre-operative results and documents have been reviewed as part of the pre-operative evaluation. Informed Consent: The patient's anesthetic plan and its attendant risks and benefits were discussed with the patient/family/POA. Questions were solicited and answers provided to the satisfaction of the patient/family/POA.
[2024-10-07 07:05] LABS: BEDSIDEPREGUCG Negative (Negative)
--- NOTE | 2024-10-07 07:43 | PM.HPGS ---
History of Present Illness History of Present Illness Consent: Risks, benefits, and alternatives have been discussed and questions answered. Patient agrees to proceed with procedure. Chief complaint: GERD, hx of other disease of dig system Narrative: Nancy Newton is a 44 year old female with gerd for over 15 years on famotidine, had EGD but years ago, also remote h/o H pylori that was treated, intermittent bloating. Review of Systems Review of Systems: All systems reviewed & are unremarkable except as noted in HPI and below PMFSH Past Medical History Medical History Vitamin D deficiency Follow up Migraines History of Helicobacter pylori infection Allergies Dermatographism BMI 27.0-27.9,adult Insomnia On senior care drug therapy GERD (gastroesophageal reflux disease) Anxiety Encounter to establish care Surgical History Surgical History (Updated 10/07/24 @ 07:05 by Lewis Richmond MD) H/O cervical spine surgery Family History Family History Mother Asthma Ovarian cancer Depression Anxiety Sibling Asthma ETOHism Anxiety Depression Thyroid disorder PCOS (polycystic ovarian syndrome) Sleep apnea Grandparent Heart disease Sibling Diabetes mellitus Type II Hypertension GERD (gastroesophageal reflux disease) Social History Social History Smoking status: Never smoker Second hand tobacco smoke exposure: No Alcohol intake: never Substance use: never Substance use type: does not use Do You Feel Safe in your Home?: Yes Lack of Transportation: No Lack of Food: Never True Current Housing: I Have Housing Concerned About Future Housing: No Difficulty Paying Gas/Electric Bills: No Difficulty Paying for Meds: No Currently Unemployed: No Education: Master's Degree or Higher Difficulty w/ Childcare or Family Care: No Living arrangements: with family Occupation/Education: occupation Gender identity (if verbalized by the patient): Female Spiritual care concerns: No Meds Home Medications and Allergies Home Medications Medication Instructions Recorded Confirmed Type Lindsaymiguel Bennett See Rx Instructions BYMOUTH DAILY 06/07/24 10/07/24 History buspirone 10 mg tablet 10 mg PO DAILY 06/07/24 10/07/24 History famotidine 40 mg tablet (Pepcid) 40 mg PO BID #180 tabs 06/07/24 10/07/24 Rx cholecalciferol (vitamin D3) 50 50 mcg PO DAILY 06/24/24 10/07/24 History mcg (2,000 unit) capsule Allergies Allergy/AdvReac Type Severity Reaction Status Date / Time No Known Allergies Allergy Verified 10/07/24 06:42 Vital Signs Vital Signs - 24 hr 10/07/24 06:38 Temperature 96.8 F L Pulse Rate 76 Respiratory Rate 14 Blood Pressure 102/71 Pulse Oximetry 100 Oxygen Delivery Room Air Exam Const: General: comfortable and no acute distress HENMT: Face/Nose/Sinus: Normal nares present Eyes: General: appearance normal, both eyes and all related structures Neck: Neck: no JVD Resp: Auscultation: clear to auscultation bilaterally Cardio: Rate: regular rate Rhythm: regular rhythm GI: Inspection: non-distended GI Palp: Yes Soft to palpation Skin: General skin exam: normal color Neuro: General: gait normal Speech: normal speech Extrem: General: normal to inspection Psych: Mental Status: mental status grossly normal Assessment and Plan Assessment and plan (1) GERD (gastroesophageal reflux disease): Qualifiers: Esophagitis presence: esophagitis presence not specified Qualified Code(s): K21.9 - Gastro-esophageal reflux disease without esophagitis Code(s): K21.9 - Gastro-esophageal reflux disease without esophagitis Status: Acute Assessment and Plan: egd with bx (2) History of Helicobacter pylori infection: Code(s): Z86.19 - Personal history of other infectious and parasitic diseases Status: Acute
[2024-10-07 07:51] VITALS: BP 92/60; PULSE 71; RESP 17; O2SAT 98
[2024-10-07 08:01] VITALS: BP 93/62; PULSE 69; RESP 19; O2SAT 99
[2024-10-07 08:11] VITALS: BP 110/74; PULSE 68; RESP 16; O2SAT 99
== END 2024-10-07 08:29 | disposition home or self-care (01) ==
PROVIDERS: Anesthesiology; PCP Internal Medicine; Referring Provider Internal Medicine; Visit Provider Internal Medicine Gastroenterology
PROC: 0DJ08ZZ Inspection of Upper Intestinal Tract, Via Natural or Artificial Opening Endoscopic (ICD-10-PCS; CPT 43239; principal; 2024-10-07 08:00)
DX: K21.00 Gastro-esophageal reflux disease with esophagitis, without bleeding (principal); K29.50 Unspecified chronic gastritis without bleeding; K44.9 Diaphragmatic hernia without obstruction or gangrene; E55.9 Vitamin D deficiency, unspecified; F41.9 Anxiety disorder, unspecified; G47.00 Insomnia, unspecified; L50.3 Dermatographic urticaria; Z79.899 Other long term (current) drug therapy; Z98.1 Arthrodesis status; Z87.19 Personal history of other diseases of the digestive system; Z86.19 Personal history of other infectious and parasitic diseases; Z80.41 Family history of malignant neoplasm of ovary; Z82.49 Family history of ischemic heart disease and other diseases of the circulatory system
CPT/HCPCS: 43239; 88305; J2704; J7120

== ENCOUNTER 2024-12-27 08:08 | Outpatient (CLI) | payer BC, SELFPAY ==
--- OUTSIDE RECORDS SUMMARY | 2024-12-27 08:10 | XMS_ITS | Clinical Summary ---
Author Organization [facility] Address [address] [place] [address] Care Team Providers Care Scallop Cutter Name Role Phone Daniel Sanchez MD Unavailable [...] TO FIND Med Name: Mary mccormick Active eeqzzcnx-mkgd-ur n-folic acid 18-0.4 mg tablet Take by [...] disease 10/26/2021 Otalgia of both ears 10/26/2021 Surgical History Surgery Date Site/Laterality Comments SHOULDER [...] a drink containing alc ohol? Never 04/08/2024 Average Number of Drinks Not on file 024 Frequency of Binge Drinking Not on file 03/26 PHQ-2 Answer Date Recorded PHQ-2 Total Score (If total score is 3 or more points, staff should administer the PHQ-9) 0 08/25/2023 [place] Depression Scale Answer Date Recorded [place] Depression Scale Total 5 01/29/2020 The thought of harming myself has occurred to me . 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 Gender Identity Not on file Sexual Orientation [...] N Livin g [address],JENNIFER YLIZZ I Erwin tt, Rasheed Magdaleno MD Delivery Location:This Facil ity ([facility]) Last Filed Vital Signs Vital Sign Reading Time Taken Comments Blood Pressure 110/70 04/08/2024 11:41 AM ARABIC TEACHER Pulse 81 11/23/2023 11:50 AM CDT Temperature 36.8 C (98.2 F) 11/23/2023 11:50 AM CDT Respiratory Rate 18 08/25/2023 12:59 PM CDT Oxygen Saturation 100% 11/23/2023 11:50 AM CDT Inhaled Oxygen Concentration - - Weight 78 kg (172 lb) 04/08/2024 11:41 AM ARABIC TEACHER Height 165.1 cm (5' 5) 04/08/2024 11:41 AM ARABIC TEACHER Body Mass Index 28.62 04/08/2024 11:41 AM ARABIC TEACHER Plan of Treatment Health Maintenance Due Date Last Done Comments Hepatitis C Screening 1982 DTaP/Tdap/Td Vaccine (1 - Tdap) 1993 Varicella Vaccines (1 of 2 - 13+ 2-dose series) 1995 Hepatitis B Screening 02/29/2000 HPV Vaccines (1 - 3-dose SCD M series) 2009 Cervical Cancer Screening 09/21/2021 09/21/2020 Covid-19 Vaccine (3 - 2023-2 5 season) 2024 08/02/2020, 07/05/2020 Depression Screening 08/24/2024 08/25/2023, 01/29/2020 Influenza Vaccine (#1) 2025 Breast Cancer Screening-Mammogram 03/17/2025 03/17/2024, 12/11/2022 Regular Well Visit/Exam 18-64 04/08/2025, 08/25/2023 Pneumococcal vaccine <65 Aged Out No longer [...] Most Recently Relevant to Health Maintenance [place] [employer] [place] [place] Direct[place] For more information, please contact: [phone] * Full Code (Latest Code Status on File) Date Activated Date Inactivated Comments 01/28/2020 1:16 AM 01/29/2020 11:04 PM Full CPR in c ase of cardiopulmonary arrest Care Teams Scallop Cutter Relationship Specialty Start Date End Date Prakash Velasquez MD [address] [place] [address] PCP - General Family Medicine 08/25/23 Daniel Sanchez MD [address] [place] [address] Consulting Physician Obstetrics and Gynecology 01/29/20
--- OUTSIDE RECORDS SUMMARY | 2024-12-27 08:10 | XMS_ITS | Encounter Summary ---
Author Organization [facility] Address [address] [place] [address] Care Team Providers Care Parts Room Clerk Name Role Phone No, Physician Primary Care Provider Daniel Sanchez MD Unavailable Frieda Hunt Primary Care Pr ovider Prakash Velasquez MD Primary Care Provider Encounter Details Date Type Department Care Team (Late st Contact Info) Description 02/25/2020 Documentation [facility] [address] [place] [address] Suze Johnson, RN Social History Tobacco Use Types Packs/Day Years Used Date Smoking Tobacco: Never Smokeless Tobacco: Never Alcohol Use Standard Drinks/Week Comments Not Currently 0 (1 standard drink = 0.6 oz pur e alcohol) [place] Depression Scale Answer Date Recorded [place] Depression Scale Total 5 01/29/2020 The thought of harming myself has occurred to me . 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 documented in this encounter Plan of Treatment Not on file documented as of this encounter Visit Diagnoses Not on filedocumented in this encounter Additional Health Concerns Infection Onset Date Last Indicated Resolved Time COVID: Suspected 05/27/2023 05/27/2023 05/27/2023 4:04 PM INTEGRATED PROGRAM TEACHER RSV, droplet 05/27/2023 05/27/2023 06/03/2023 3:05 AM INTEGRATED PROGRAM TEACHER documented as of this encounter Care Teams Parts Room Clerk Relationship Specialty Start Date End Date No, Physician PCP - General 10/28/16 12/10/22 Frieda Hunt PA [address] [facility] [address] [place] [address] PCP - General Physician Stripper Apprentice 12/11/22 08/24/23 Prakash Velasquez MD [address] [facility] [address] [place] [address] PCP - General Family Medicine 08/25/23 Daniel Sanchez MD [address] [facility] [address] [place] [address] Consulting Physician Obstetrics and Gynecology 01/29/20 documented as of this encounter
--- OUTSIDE RECORDS SUMMARY | 2024-12-27 08:10 | XMS_ITS | Referral Summary ---
Author Organization [facility] Address [address] [place] [address] Care Team Providers Care Machine Molder Name Role Phone Daniel Sanchez MD Unavailable Prakahs Velasquez MD Primary Care Provider Allergies No [...] TO FIND Med Name: Mary mccormick Active [place]-emlb-zx n-folic acid 18-0.4 mg tablet Take by [...] staff should administer the PHQ-9) 0 08/25/2023 [place] Depression Scale Answer Date Recorded [place] Depression Scale Total 5 01/29/2020 The thought of harming myself has occurred to me . 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 Gender Identity Not on file Sexual Orientation Not on file Last Filed Vital Signs Vital Sign Reading Time Taken Comments Blood Pressure 110/70 04/08/2024 11:41 AM TECHNICAL SPECIALIST Pulse 81 11/23/2023 11:50 AM CDT Temperature 36.8 C (98.2 F) 11/23/2023 11:50 AM CDT Respiratory Rate 18 08/25/2023 12:59 PM CDT Oxygen Saturation 100% 11/23/2023 11:50 AM CDT Inhaled Oxygen Concentration - - Weight 78 kg (172 lb) 04/08/2024 11:41 AM TECHNICAL SPECIALIST Height 165.1 cm (5' 5) 04/08/2024 11:41 AM TECHNICAL SPECIALIST Body Mass Index 28.62 04/08/2024 11:41 AM TECHNICAL SPECIALIST Plan of Treatment Not on file Procedures [...] Most Recently Relevant to Health Maintenance Insurance [facility] [place] [employer] Advance Directives For more information, please contact: [phone] * Full Code (Latest Code Status on File) Date Activated Date Inactivated Comments 01/28/2020 1:16 AM 01/29/2020 11:04 PM Full CPR in c ase of cardiopulmonary arrest Care Teams Machine Molder Relationship Specialty Start Date End Date Prakash Velasquez MD [address] [place] [address] PCP - General Family Medicine 08/25/23 Daniel Sanchez MD [address] [place] [address] Consulting Physician Obstetrics and Gynecology 01/29/20
--- OUTSIDE RECORDS SUMMARY | 2024-12-27 08:10 | XMS_ITS | Clinical Summary ---
Author Organization [facility] Address [address] [facility] [place] [address] Care Team Providers Care Purchasing Officer Name Role Phone J Carlos Dawkins MD Primary Care Provider [phone] Source Comments [facility],non-owned Affiliates and Associated Physician Practices is amultiple site organization consisting of ambulatory clinics and hospital sitesin [place], [place], [place] and [place]. This disclosure is being madepursuant to the Care Everywhere program and may not contain all information available regarding this patient. Last updated 18.[facility] Allergies No known active allergies Medications * [...] 4:03 PM CDT Height 162.6 cm (5' 4) 08/04/2017 4:03 PM CDT Body Mass Index 27.46 08/04/2017 4:03 PM CDT Plan of Treatment Health Maintenance Due Date Last Done Comments LIPID TESTING 1982 MAMMOGRAM 1982 HIV SCREENING 1997 HEPATITIS C SCREENING 02/24/2000 DTAP/TDAP/TD VACCINES (1 - Tdap) 2001 HEPATITIS B VACCINE (1 of 3 - 19+ 3-dose series) 2001 PAP SMEAR 2003 HPV VACCINE (1 - 3-dose SCDM series) 2009 COVID-19 VACCINE ( - 2023-2 5 season) 2024 DEPRESSION SCREENING 05/26/2024 INFLUENZA VACCINE (#1) 2025 ZOSTER VACCINE (1 of 2) 02/29/2032 [...] patient's age to complete this topic Insurance [facility] SELF PAY NO INSURANCE Member Subscriber Plan / Payer (Ef fective for All Dates) Name:Baltazar Aguilar V Member ID:Not on file Relation to Subscriber:Not on file Name:BALTAZAR AGUILAR Subscriber ID:Not on file (Home) Address: [facility] [address] [place] [address] Payer ID:Not on file Group ID:Not on file Type:Self Pay Address: [facility] Care Teams Purchasing Officer Relationship Specialty Start Date End Date J Carlos Dawkins MD PCP - General Family Medicine 02/19/17
== END 2024-12-27 08:09 | disposition home or self-care (01) ==
LOC: ANHAUDIO 08:08
PROVIDERS: PCP Internal Medicine; Visit Provider Otolaryngology
DX: H69.92 Unspecified Eustachian tube disorder, left ear (principal); H90.42 Sensorineural hearing loss, unilateral, left ear, with unrestricted hearing on the contralateral side
CPT/HCPCS: 92557; 92567

== ENCOUNTER 2025-05-06 07:44 | Outpatient (CLI) | payer BC, SELFPAY ==
[2025-05-31 13:35] VITALS: BMI 27.4
--- NOTE | 2025-05-31 13:35 | WPDHOMESLEEP ---
Sleep Study - Home Unattended Date of Study: 05/06/25 Ordering Provider: Tyshawn Montiel MD Interpreting Provider: Nikki Davis, DO Home Sleep Study Type: Watch PAT Height: 1.68 m Weight: 77.111 kg Body Mass Index: 27.4 Neck Circumference (inches): 14 [place]: 12 Reason for Sleep Study Daytime hypersomnia Sleep History The patient is a 45-year-old female that had a sleep study ordered by her primary care physician for evaluation of sleep apnea. The patient admits to snoring loudly, excessive daytime sleepiness and trouble maintaining sleep. She denies choking or gasping at night. She denies having interruptions in breathing while asleep. She denies having trouble breathing on her back. She does have morning headaches. She does have a dry or sore mouth /throat in the morning. She does have nocturnal heartburn. She urinates 3 times throughout the night. She denies having difficulty falling asleep. She does have difficulty returning to sleep if she wakes up throughout the night. She does use hypnotics or sedatives. She denies feeling anxious about sleep. She does feel tired or sleepy during the day. She does feel tired in the morning. She does have the urge to fall asleep during the day. She denies feeling drowsy while driving. She denies sleep paralysis, cataplexy and hypnagogic/ hypnopompic hallucinations. She does clench or grind her teeth. She does kick or jerk her legs excessively. She does have a restless feeling in her legs that does cause an urge to move her legs. Gets worse with rest and better with activity. It only occurs in the evening. She goes to bed at 9:00 p.m. on work days and at 10:00 p.m. on her days off. It takes her 30 minutes to fall asleep. She gets 4-1/2 hours of sleep on work days and 5 hours on her days off. Her sleep is a little more restorative on days off. She denies taking any planned naps. She denies dream enactment behavior. She denies sleep walking. She consumes 1-2 cups of caffeinated beverage per day. She denies tobacco and alcohol use. She denies exercising on a regular basis. [facility] Past Medical History Medical History Impaired concentration Encounter for routine adult health examination without abnormal findings Hypersomnolence BMI 29.0-29.9,adult Vitamin D deficiency Follow up Migraines History of Helicobacter pylori infection Allergies Dermatographism BMI 27.0-27.9,adult Insomnia [facility] GERD (gastroesophageal reflux disease) Anxiety Encounter to establish care Surgical History Surgical History H/O cervical spine surgery Family History Family History Mother Asthma Ovarian cancer Depression Anxiety Sibling Asthma ETOHism Anxiety Depression Thyroid disorder PCOS (polycystic ovarian syndrome) Sleep apnea Grandparent Heart disease Sibling Diabetes mellitus Type II Hypertension GERD (gastroesophageal reflux disease) Social History Social History Social History: Caffeine-tea Smoking status: Never smoker Second hand tobacco smoke exposure: No Alcohol intake: never Substance use: never Substance use type: does not use Lack of Transportation: No Lack of Food: Never True Current Housing: I Have Housing Concerned About Future Housing: No Difficulty Paying Gas/Electric Bills: No Difficulty Paying for Meds: No Currently Unemployed: No Education: Master's Degree or Higher Difficulty w/ Childcare or Family Care: No Living arrangements: with family Occupation/Education: occupation Gender identity (if verbalized by the patient): Female Spiritual care concerns: No Medications Home Medications ?Medication ?Instructions ?Recorded ?Confirmed ?Type Mary Bennett See Rx Instructions BYMOUTH DAILY 06/07/24 04/27/25 History buspirone 10 mg tablet 10 mg PO DAILY 06/07/24 04/27/25 History cholecalciferol (vitamin D3) 50 50 mcg PO DAILY 06/24/24 04/27/25 History mcg (2,000 unit) capsule chaseteberry BYMOUTH BID 04/27/25 04/27/25 History norethindrone 1 mg-ethinyl 1 tablet PO DAILY 04/27/25 04/27/25 History estradiol 20 mcg (24)-iron 75 mg (4) tablet (Aurovela 24 Fe) methylphenidate HCl 10 mg tablet 10 mg PO BID #60 tabs 05/05/25 Rx (Ritalin) famotidine 40 mg tablet See Rx Instructions .Route 05/22/25 Rx .COMPLEX #180 tabs Sleep Procedure The sleep study was completed using [employer] a technically adequate device with seven channels: peripheral arterial tone, actigraphy, body position, snore, respiratory movement, pulse oximetry, sleep staging, and heart rate. Prior to using the device, the patient received verbal and written instructions for its application and was provided with the help desk phone number for additional telephonic instruction with 24-hour availability of qualified personnel to answer questions. The study was scored using [facility] guidelines. Sleep Architecture The total recording time is 9 hrs, 30 min. The total sleep time is 7 hrs, 4 min. Sleep latency is 23 minutes. REM latency is 284 minutes. The patient had 16 episodes of waking. Sleep architecture shows 17.0% deep sleep, 74.4% light sleep, and (as % Total Sleep Time) showed NREM (Light 74.4%; Deep 17.0%), and a 8.6% stage REM. The patient spent 57.9% of total sleep time in the supine position. Sleep efficiency was 74.39. Respiratory Analysis The overall AHI (pAHI 4 %:) is 0.6. The overall AHI (pAHI 3%:) is 0.9. The central AHI is 0.0. The AHI was 0.9 in NREM and 0.0 in REM sleep. The AHI was 1.2 in Supine and 0.3 in Non-supine sleep. Percent of Dariel Cobb respirations is 0.0. Oximetry Data The oxygen desaturation index (WILLI 4%:) is 0.6. The mean saturation is 96%, and the lowest saturation is 84%. Time spent with saturation < 88% is 0.1 minutes. Snoring Profile Snoring average intensity is 40 dB. The patient snored above 45 decibels for 3.4 minutes, 0.8% of sleep time. Cardiac Profile The average pulse rate is 55 beats per minutes. The lowest pulse rate is 44 bpm. The highest pulse rate reported is 88 bpm. Atrial fibrillation was not detected. Premature beats occur <0.1 per minute. Assessment and Plan Assessment and Plan (1) Hypersomnolence: Code(s): G47.10 - Hypersomnia, unspecified Status: Acute Assessment and Plan: The patient had an overall AHI of 0.6 with desaturation down to 84%. This is not consistent with sleep-disordered breathing. Due to the severity of the patient's symptoms, further evaluation is warranted. I recommend that the patient have a polysomnogram followed by MSLT WITHOUT the use of a hypnotic or stimulant. Data The data obtained during this sleep study is adequate for interpretation. Certification This sleep study has been reviewed by a board certified sleep medicine physician.
== END 2025-05-09 11:34 | disposition home or self-care (01) ==
LOC: ANHCSM 07:45
PROVIDERS: PCP Internal Medicine; Visit Provider Internal Medicine
DX: G47.10 Hypersomnia, unspecified (principal)
CPT/HCPCS: 95800